=== PATIENT | female | born 1970 | race Caucasian/White ===

== ENCOUNTER → 2023-07-28 15:51 | Outpatient (REF) | payer OTHER, SELFPAY | LOC: HWRAD 15:51 | PROVIDERS: ATTENDING PHYSICIAN Nurse Practitioner Adult Health | DX: Z12.31 Encounter for screening mammogram for malignant neoplasm of breast (principal); Z78.0 Asymptomatic menopausal state | CPT/HCPCS: 77063; 77067; 77080 ==

== ENCOUNTER → 2023-08-05 09:10 | Outpatient (REF) | payer OTHER, SELFPAY | LOC: WDC 09:10 | PROVIDERS: ATTENDING PHYSICIAN Nurse Practitioner Adult Health | DX: R92.8 Other abnormal and inconclusive findings on diagnostic imaging of breast (principal) | CPT/HCPCS: 76642 ==

== ENCOUNTER 2024-10-17 14:11 | Emergency (ER) | payer OTHER, SELFPAY ==
[2024-10-17 14:15] VITALS: BP 134/79
[2024-10-17 14:38] LABS: Hematocrit 41.5 % (37.0-47.0); Hemoglobin 14.2 g/dL (12.0-16.0); Mean Corp Hgb Conc. 34.2 g/dL (33.0-37.0); Mean Corpuscular Volume 85.6 fL (81.0-99.0); Nucleated Red Blood Cells % 0 %; Platelet Count 271 10^3/uL (130-400); Red Cell Dist. Width 12.4 % (11.5-14.5)
[2024-10-17 14:48] LABS: HCG, Serum Qualitative Screen Negative
[2024-10-17 14:50] LABS: ALT (SGPT) 16 U/L (0-35); AST (SGOT) 20 U/L (14-36); Albumin 4.5 g/dl (3.5-5.0); Alkaline Phosphatase 29 U/L (38-126); Blood Urea Nitrogen 17 mg/dl (7-17); Calcium 9.4 mg/dl (8.4-10.2); Carbon Dioxide 21 mmol/L (22-30); Chloride 113 mmol/L (98-107); Glucose 109 mg/dl (70-99); Lipase 141 U/L (23-300); Potassium 4.1 mmol/L (3.5-5.1); Sodium 141 mmol/L (135-145); Total Protein 6.8 g/dl (6.3-8.2); eGFR > 60.00
[2024-10-17 18:00] VITALS: BP 137/55
[2024-10-17 18:34] VITALS: BMI 24.5
[2024-10-17 18:35] VITALS: BP 137/55
[2024-10-17] MEDS: NSS 1000 IV (18:55)
[2024-10-17] MEDS: TORADOL 30 MG IV (18:57)
[2024-10-17 19:00] VITALS: BP 128/72
[2024-10-17] MEDS: ZOFRAN 4 MG IV (19:00)
[2024-10-17 19:46] LABS: Urine Character Clear (Clear)
[2024-10-17 19:58] LABS: Urine Red Blood Cell 0-2 /HPF (0-2)
[2024-10-17 20:00] VITALS: BP 131/81
--- NOTE | 2024-10-17 20:50 | ED.GENMED ---
History of Present Illness
General
Chief Complaint: Abdominal Symptoms
Source: patient
Exam Limitations: none
Time Seen by Provider: 10/17/24 18:07
Nursing documentation reviewed up to this point in time: agreed with
History of Present Illness
History of Present Illness:
see MDM
Past History
Past History
ED Past Medical History: Psychiatric (Bipolar) and Other (Neck pain, pancreatitis ERCP at [facility], thoracic outlet syndrome)
ED Past Surgical History: Cholecystectomy, Gynecological (Right ovarian cyst with right ovary ruptured, Total hysterectomy), Tonsilectomy and Other (Erich duct growth removed)
Social History
Tobacco: Vaping
Alcohol: None
Personal:
Living: with family
Employment: Not employed
Family History
Family History: Adopted
Review of Systems
Review of Systems
Allergies reviewed?: Yes
All Other Systems: Not applicable
Phy Exam
Physical Exam
Physical Exam:
GENERAL: Alert , in no apparent distress
EYE: pupils equal and reactive
NECK: Supple
ENT: o/p clr, mmm.
CARDIAC: Regular rate and rhythm , no edema
LUNGS: Clear breath sounds bilaterally, no acute respiratory distress, no wheezes/rales/rhonchi
ABDOMEN: Soft, mild umbilical tendenress, normal bowel soounds, no r/g, no cvat, normal bowel sounds
NEUROLOGICAL: Alert and oriented, no focal neuro deficits
SKIN: Warm and dry, skin intact.
MUSCULOSKELETAL: No edema, well perfused. neg jacinda's sign
PSYCH: Normal and appropriate interaction.
Course
Orders/Labs/Results
Orders:
Orders
10/17/24 14:18
Test Result ONCE
10/17/24 14:23
Complete Blood Count/With Diff Urgent
Comprehensive Metabolic Panel Urgent
HCG, Serum Qualitative Screen Urgent
Lipase Urgent
10/17/24 18:45
CT Abd/Pel (IV only)-DH only Urgent
Comment:
Reason For Exam: lower abd pain, diarrhea
0.9% Sodium Chloride 1000 ml [Nss] 1,000 ml IV BOLUS
Ketorolac [Toradol] 30 mg IV NOW STA
Ondansetron Injectable [Zofran] 4 mg IV NOW STA
10/17/24 19:35
Urinalysis Reflex To Culture Urgent
Date Specimen was Collected: 10/17/24
Time Specimen was Collected: 19:33
Urine Microscopic Reflex Cult Urgent
Urine Culture Urgent
JUNE Source: U
Specimen Description:
Date Specimen was Collected: 10/17/24
Time Specimen was Collected: 19:33
10/17/24 20:55
Dicyclomine [Bentyl] 20 mg PO NOW STA
Abnormal Lab Results
10/17/24 10/17/24
14:23 19:35
Chloride 113 H mmol/L
(98-107)
Carbon Dioxide 21 L mmol/L
(22-30)
Glucose 109 H mg/dl
(70-99)
Alkaline Phosphatase 29 L U/L
(38-126)
Urine Ketones 2+ A
(Negative)
Leukocyte Esterase Rfl 2+ A
(Negative)
10/17/24 14:23
10/17/24 14:23
Vital Signs
Initial and Last Documented VS:
Initial Vital Signs
Temp Pulse Resp BP Pulse Ox
36.6 C 82 16 134/79 98
10/17/24 14:15 10/17/24 14:15 10/17/24 14:15 10/17/24 14:15 10/17/24 14:15
Last Documented Vital Signs
Temp Pulse Resp BP Pulse Ox
36.8 C 59 18 132/85 99
10/17/24 18:35 10/17/24 21:10 10/17/24 21:10 10/17/24 21:10 10/17/24 21:10
MDM/Problems Addressed
Differential Diagnosis Includes:
see MDM
MDM/Problems Addressed:
Note:
CHIEF COMPLAINT(S)
Abdominal pain and diarrhea for over a week.
HISTORY OF PRESENT ILLNESS
The patient,54 y/o F a female, reports experiencing abdominal pain for the past week, which initially felt like it was affecting her entire intestine. The pain intensified approximately four days ago, specifically localizing to her right side and
around the umbilicus. She described the pain as becoming 'horrible.' she has patton intermittent crampiness in her abdomen off and on x 4 weeks.
The frequency of diarrhea significantly increased yesterday, reaching about 30 episodes, making her unable to move without needing to go to the bathroom. She also noted feeling lightheaded. Her was concerned, prompting her to make an
appointment with her primary doctor, who could not examine her due to the severity of pain.
The patient denies a history of inflammatory bowel disease or similar intestinal problems but mentions a lifelong 'irritable feeling' without identifying it as a specific condition. She has not taken antibiotics within the past couple of weeks. She
is currently taking medication for bipolar disorder and thyroid disease.
The patient admits that her symptoms become worse after eating and reports not having eaten today. She denies any pain while urinating but mentions right-sided abdominal pain upon lying flat and extending the leg. The patient still has her appendix
but has had her gallbladder removed.
PAST MEDICAL AND SURGICAL HISTORY
1. Bipolar disorder
2. Thyroid disorder
3. Hypertension
4. Diabetes
5. Status post-cholecystectomy
SOCIAL DETERMINANTS AFFECTING HEALTH
The patient mentions stress as a contributing factor, along with lightheadedness leading them to seek medical evaluation.
ALLERGIES
The patient is allergic to codeine.
MEDICATIONS
1. Bipolar medication (unspecified) - taken nightly
2. Thyroid medication (unspecified)
3. Two doses of Ozempic (Tirzepatide) in the past, with the last dose in May
REVIEW OF SYSTEMS
- Gastrointestinal: Severe right-sided abdominal pain centered around the umbilicus, abnormal and increased frequency of diarrhea without blood.
- Neurological: Lightheadedness noted when engaging in physical activity.
- Musculoskeletal: Pain upon leg extension.
- Constitutional: Nausea reported when put in a supine position.
PHYSICAL EXAM
- Gastrointestinal: Tenderness noted upon palpation of the right abdomen., nondistended, normal bs;
- General: Nursing notes reviewed and vital signs reviewed.
PROBLEM LIST
Acute Problems:
1. Abdominal pain
2. Diarrhea
3. Nausea
Chronic Problems:
1. Bipolar disorder
2. Thyroid disorder
3. Diabetes
4. Hypertension
PLAN
1. Administer Toradol (Ketorolac) for pain management.
2. Initiate intravenous fluids for hydration.
3. Perform a computed tomography (CT) scan to evaluate for possible colitis or appendicitis.
4. Obtain a stool sample for testing for infectious causes.
5. Ensure the patient is not exposed to contrast agents due to allergy to codeine.
DIFFERENTIAL DIAGNOSIS
The Differential Diagnosis includes, in no particular order and is not limited to:
1. Appendicitis
2. Colitis
3. Gastroenteritis
4. Inflammatory bowel disease
5. Irritable bowel syndrome
6. Peptic ulcer disease
7. Biliary colic (though gallbladder removal performed)
8. Diverticulitis
9. Small bowel obstruction
10. Celiac disease
*Pulse Oximetry
SaO2: 100
Oxygen Mode of Delivery: Room air
Patient hypoxic: no (98)
*Critical Care Note
Total Time (30-74mins, 75-104mins- exclusive of procedures): Not Applicable
ED Attending Note
-
Portions of this chart may have been created with voice recognition software.� Occasional wrong word or��sound alike� substitutions may have occurred due to the inherent limitations of voice recognition software.
Discharge Plan
Departure
Patient Disposition: Home (Routine Discharge)
Date of Disposition: 10/17/24
Time of Disposition: 21:09
Patient with high blood pressure during this ER visit?: No
Condition: Fair
Covid-19: Not Applicable
Discharge Problem:
Abdominal pain, Diarrhea
Instructions: Diarrhea in teens and adults, Abdominal Pain
Prescriptions:
New
dicyclomine 20 mg tablet
20 mg PO QID PRN (Reason: abdominal pain) Qty: 12 0RF
No Action
eszopiclone [Lunesta] 3 MG tablet
3 mg PO HSPRN PRN (Reason: sleep)
topiramate 25 MG tablet
12.5 mg PO BID
alprazolam 0.5 MG tablet
0.5 mg PO QPM
prednisone 10 MG tablet
10 mg PO .TAPER Qty: 20 0RF
Rx Instructions:
Take 40mg daily x2days, 30mg daily x2days,
20mg daily x2days, 10mg daily x2days.
ondansetron 4 MG tablet,disintegrating
4 mg PO TIDPRN PRN (Reason: nausea) Qty: 12 0RF
cyclobenzaprine 10 mg tablet
10 mg PO HS PRN (Reason: muscle spasm) Qty: 7 0RF
ondansetron 4 mg tablet,disintegrating
4 mg PO Q8H PRN (Reason: nausea and vomiting) Qty: 10 0RF
Referrals:
Sara Grigsby CRNP [Family Provider, Internal Medicine] - Follow up in 5-7 days
Activity Restrictions/Additional Instructions:
Were not sure the cause of your abdominal pain. You are unable to provide a stool sample here for us to test but you could consider getting this done as an outpatient with your doctor. Your CAT scan did not show any inflammation of your colon or
obvious causes for your abdominal pain. Try Bentyl 20 mg 3-4 times a day as needed for crampy abdominal pain. Eat a bland diet, bananas, rice, applesauce, toast as needed for the diarrhea. Stay hydrated. Return for worsening symptoms like fever,
bloody diarrhea, severe dehydration, severe pain or any concerns.
Interventions
Interventions:
*Risk Screen - Suicide Last Done: 10/17/24 14:17
*General Assessment Last Done: 10/17/24 18:36
*Neglect/Abuse Screening Last Done: 10/17/24 14:17
*ED- Fall Risk Assessment Last Done: 10/17/24 18:36
*ED COVID-19 Vaccine History Last Done: 10/17/24 18:36
*Nursing Disposition Last Done: 10/17/24 21:18
FZ-Odtyes-Uffypjkdsm Assessment Last Done: 10/17/24 18:39
Discharge Date and Time
Discharge Date/Time: 10/17/24 21:20
Print Language: IRISH
[2024-10-17 21:10] VITALS: BP 132/85
[2024-10-17] MEDS: BENTYL 20 MG PO (21:11)
== END 2024-10-17 21:20 | disposition home or self-care (01) ==
LOC: EMR 14:11
PROVIDERS: Physician Assistant; Student in an Organized Health Care Education/Training Program; EMERGENCY PHYSICIAN Emergency Medicine; FAMILY PHYSICIAN Nurse Practitioner Adult Health
DX: R10.815 Periumbilic abdominal tenderness (principal); R19.7 Diarrhea, unspecified; E11.9 Type 2 diabetes mellitus without complications; I10 Essential (primary) hypertension; E07.9 Disorder of thyroid, unspecified; F31.9 Bipolar disorder, unspecified; F17.290 Nicotine dependence, other tobacco product, uncomplicated; Z88.5 Allergy status to narcotic agent; Z90.49 Acquired absence of other specified parts of digestive tract
CPT/HCPCS: 99284; 96374; 96375; 96361; 74177; 80053; 81003; 81015; 83690; 84703; 85025; 87086; Q9967